=== PATIENT | male | born 1985 | race Two or more races ===

== ENCOUNTER 2020-07-21 13:26 | Emergency (ER) | payer MEDICAID, OTHER ==
[~2020-07-21] VITALS: Ht 177.8 cm; Wt 45.4 kg
[2020-07-21 13:40] VITALS: BP 135/87
[2020-07-21 15:37] LABS: Albumin 3.3 g/dL (3.4-5.0); Calcium 8.7 mg/dL (8.5-10.1); Potassium 3.5 mmol/L (3.5-5.1)
[2020-07-21 15:42] LABS: BUN/Creatinine Ratio 29.6; Bilirubin, Total 0.3 mg/dL (0.2-1.0); Total Protein 8.8 g/dL (6.4-8.2)
[2020-07-21 15:50] LABS: CRP High Sensitivity 1.66 mg/dL (< 0.3)
[2020-07-21 15:56] LABS: Hematocrit 25.3 % (41.0-53.0); Hemoglobin 8.6 g/dL (13.5-17.5); Mean Corpuscular Volume 85.4 fL (80.0-100.0); Platelet Count (auto) 309 10^3/uL (140-450); Red Blood Cells 2.96 10^6/uL (4.5-5.90); Red Cell Distribution Width 17.9 % (11.8-14.3)
[2020-07-21 16:21] LABS: White Blood Cell 0.9 10^3/uL (4.4-10.8)
[2020-07-21 16:22] LABS: Band Neutrophils % (manual) 0; Basophils % (manual) 0 (0.0-2.0); Blast Cells 0; Metamyelocytes % 0; Myelocytes % 0; Promyelocytes % 0; Reactive Lymphocytes 0
[2020-07-21 18:47] LABS: Eosinophils % (manual) 5 (0-7); Lymphocytes % (manual) 38 (10.0-50.0); Monocytes % (manual) 15 (0-12)
== END 2020-07-21 21:14 | disposition home or self-care (01) ==
LOC: EDBD 13:26 → ER 13:26
DX: M79.662 Pain in left lower leg (principal); M79.661 Pain in right lower leg; I10 Essential (primary) hypertension; Z90.49 Acquired absence of other specified parts of digestive tract; Z88.2 Allergy status to sulfonamides
CPT/HCPCS: 36415; 71045; 72100; 80053; 82550; 83735; 84100; 85007; 85027; 85652; 86141